=== PATIENT | female | born 1990 | race Caucasian/White ===

== ENCOUNTER 2017-02-25 09:15 | Emergency (ER) | payer BC, OTHER ==
[2017-02-25] MEDS ORDERED: Sodium Chloride 0.9% 10 ML Syringe FLUSH PRN (09:31)
[2017-02-25] MEDS ORDERED: Sodium Chloride 0.9% 1,000 ML IV SCH (09:45)
[2017-02-25 10:37] VITALS: BP 124/86
--- NOTE | 2017-02-25 10:41 | EDM.PDOC ---
ED HPI GENERAL MEDICAL PROBLEM - General Chief Complaint: Neurological Problem Stated Complaint: SYNCOPE POSSIBLE SEIZURE Time Seen by Provider: 02/25/17 09:30 Source of Information: Reports: Patient, Family, RN Notes Reviewed (Mother) - History of Present Illness INITIAL COMMENTS - FREE TEXT/NARRATIVE: 27-year-old female suffered syncopal event this morning about 2 hours ago. She states she just awakened and was going up steps when she began to feel lightheaded and dizzy. She did pass out for at least a brief period of time. She then did call her mother and some friends not too long after this happened. When her mother arrived to check on her she was alert, coherent, not confused, concerned about getting to work and concerned about bleeding she had had from her mouth" mass associated with that". Have some headache. She did hit the left side of her face and forehead when she fell. She does have some soreness of the right hand but not extremely painful. She also did suffer a small laceration to the inside of her lower mouth. She did have some bleeding from the nose initially. That has stopped. She did have a syncopal event about 5 or 6 years ago. There was some question of seizure with that but this was determined to be primarily a syncopal event problem. She states she did have an EEG after that episode and that was "normal". - Related Data Allergies Allergy/AdvReac Type Severity Reaction Status Date / Time No Known Allergies Allergy Verified 02/25/17 09:24 Home Meds: Home Meds Cod Liver Oil 1 tab PO DAILY 02/25/17 [History] Cyanocobalamin (Vitamin B-12) [Vitamin B-12] 1 tab PO DAILY 02/25/17 [History] Multivitamin [Multivitamins] 1 tab PO DAILY 02/25/17 [History] Multivits Min/Iron/FA/Herb#186 [Hair, Skin and Nails Caplet] 1 tab PO DAILY 09/13 [History] Vitamin E 1 tab PO DAILY 02/25/17 [History] Past Medical History Respiratory History: Reports: Pneumothorax [employer] History: Reports: Other (See Below) Other OB/BYN History: cervical cancer Oncologic (Cancer) History: Reports: Cervix - Past Surgical History HEENT Surgical History: Reports: Adenoidectomy, Myringotomy w Tube(s), Tonsillectomy Social & Family History - Family History Family Medical History: Unobtainable - Tobacco Use Smoking Status *Q: Never Smoker Second Hand Smoke Exposure: No - Caffeine Use Caffeine Use: Reports: None - Recreational Drug Use Recreational Drug Use: No ED ROS GENERAL - Review of Systems Review Of Systems: See Below Constitutional: Denies: Fever, Chills HEENT: Reports: Nosebleed (Gone), Other (Laceration injury lower mouth) Respiratory: Denies: Shortness of Breath, Pleuritic Chest Pain Cardiovascular: Denies: Chest Pain GI/Abdominal: Denies: Abdominal Pain, Diarrhea, Nausea, Vomiting Musculoskeletal: Reports: Joint Pain (Right hand, mild). Denies: Neck Pain, Arm Pain Skin: Reports: No Symptoms Neurological: Reports: Dizziness, Headache (Gone mild to moderate). Denies: Numbness, Tingling ED EXAM, NEURO - Physical Exam Exam: See Below General Appearance: Alert Eye Exam: Bilateral Eye: PERRL Throat/Mouth: Other (3/4 cm inner lower mouth, no active bleeding, no injury to the tongue, teeth are all intact, mildly sore upper incisors) Head Exam: Facial Swelling (Very slight swelling left zygomatic area of face, very minimal soft tissue tenderness left cytometric area of face and also left for head, no bony tenderness) Neck: Supple, Full Range of Motion Respiratory/Chest: Lungs Clear, Normal Breath Sounds Cardiovascular: Regular Rate, Rhythm GI/Abdominal: Soft, Non-Tender. No: Guarding Neurological: Alert, No Motor/Sensory Deficits, Oriented x 3 Back Exam: Normal Inspection Extremities: Other (Very mild soft tissue tenderness dorsum of right hand, no significant bony tenderness, good finger range of motion, no deformity). No: Leg Pain Psychiatric: Normal Affect, Normal Mood Skin Exam: Warm, Dry, Normal Color Course - Vital Signs Last Recorded V/S: Last Vital Signs Temp 97.6 F 02/25/17 09:21 Pulse 92 02/25/17 10:34 Resp 20 02/25/17 10:34 BP 124/86 02/25/17 10:34 Pulse Ox 98 02/25/17 10:34 - Orders/Labs/Meds Orders: Active Orders 24 hr Category Date Time Status Peripheral IV Care [RC] . DIRECTED Care 02/25/17 09:31 Active Peripheral IV Insertion Adult [OM.PC] Stat Oth 02/25/17 09:31 Ordered Labs: Laboratory Tests 02/25/17 02/25/17 Range/Units 09:30 09:30 WBC 11.16 H (3.98-10.04) K/mm3 RBC 4.80 (3.98-5.22) M/mm3 Hgb 15.0 (11.2-15.7) gm/L Hct 44.8 (34.1-44.9) % MCV 93.3 (79.4-94.8) fl MCH 31.3 (25.6-32.2) pg MCHC 33.5 (32.2-35.5) g/dl RDW Std Deviation 42.9 (36.4-46.3) fL Plt Count 275 (182-369) K/mm3 MPV 10.4 (9.4-12.3) fl Neut % (Auto) 80.6 H (34.0-71.1) % Lymph % (Auto) 11.7 L (19.3-51.7) % Cross % (Auto) 7.3 (4.7-12.5) % Eos % (Auto) 0.1 L (0.7-5.8) Baso % (Auto) 0.2 (0.1-1.2) % Neut # (Auto) 9.00 H (1.56-6.13) K/mm3 Lymph # (Auto) 1.31 (1.18-3.74) K/mm3 Cross # (Auto) 0.81 H (0.24-0.36) K/mm3 Eos # (Auto) 0.01 L (0.04-0.36) K/mm3 Baso # (Auto) 0.02 (0.01-0.08) K/mm3 Sodium 139 (136-145) mEq/L Potassium 3.7 (3.5-5.1) mEq/L Chloride 104 (98-107) mEq/L Carbon Dioxide 25 (21-32) mEq/L Anion Gap 13.7 (5-15) BUN 12 (7-18) mg/dL Creatinine 0.8 (0.55-1.02) mg/dL Est Cr Clr Drug Dosing 94.68 mL/min Estimated GFR (MDRD) > 60 (>60) mL/min BUN/Creatinine Ratio 15.0 (14-18) Glucose 103 (74-106) mg/dL Calcium 9.1 (8.5-10.1) mg/dL Total Bilirubin 0.8 (0.2-1.0) mg/dL AST 14 L (15-37) U/L ALT 27 (14-59) U/L Alkaline Phosphatase 37 L (46-116) U/L Total Protein 8.0 (6.4-8.2) g/dl Albumin 4.3 (3.4-5.0) g/dl Globulin 3.7 gm/dL Albumin/Globulin Ratio 1.2 (1-2) Meds: Medications Discontinued Medications Generic Name Dose Route Start Last Admin Trade Name Freq PRN Reason Stop Dose Admin Sodium Chloride 1,000 mls @ 999 mls/hr 02/25/17 09:45 02/25/17 09:46 Normal Saline IV 999 mls/hr ONETIME QING Administration Sodium Chloride 10 ml 02/25/17 09:31 02/25/17 09:35 Saline Flush FLUSH 10 ml ASDIRECTED PRN Administration Keep Vein Open - Re-Assessments/Exams Free Text/Narrative Re-Assessment/Exam: 02/25/17 11:11 Labs are good, patient remains alert, oriented, normal mental status normal blood pressures while here in the ED. Sinus rhythm, no ectopy. Of note she is been dieting hard this past 2 weeks. She's lost about 12 pounds. She is a [place] on her for a wedding coming up in about one week. She's had a lot of stuff going on, exercising hard as well. That could all be a factor in her syncopal event this morning. Discharge instructions as documented Departure - Departure Time of Disposition: 10:35 Disposition: Home, Self-Care 01 Condition: Fair Clinical Impression: Syncope Qualifiers: Syncope type: unspecified Qualified Code(s): R55 - Syncope and collapse - Discharge Information Instructions: Syncope, [id number] Referrals: PCP,None [Primary Care Provider] - Forms: ED Department Discharge Additional Instructions: Continue to drink plenty of water to maintain hydration, eat regular meals and snacks to maintain blood sugar, if you do start feeling weak or dizzy again it is best to get your head down, best to lie down if possible until the dizziness resolves, follow-up clinic as needed, return to ED as needed - My Orders Last 24 Hours: My Active Orders 02/25/17 09:31 Peripheral IV Care [RC] . DIRECTED Peripheral IV Insertion Adult [OM.PC] Stat - Assessment/Plan Last 24 Hours: My Active Orders 02/25/17 09:31 Peripheral IV Care [RC] . DIRECTED Peripheral IV Insertion Adult [OM.PC] Stat
== END 2017-02-25 10:45 | disposition home or self-care (01) ==
LOC: JD.ED 09:15
DX: R55 Syncope and collapse (principal); S01.512A Laceration without foreign body of oral cavity, initial encounter; Z85.41 Personal history of malignant neoplasm of cervix uteri; Z96.22 Myringotomy tube(s) status; Z98.890 Other specified postprocedural states; W10.8XXA Fall (on) (from) other stairs and steps, initial encounter
CPT/HCPCS: 36415; 80053; 85025; 96360; 99284; J7040; J7050; 99283